=== PATIENT | female | born 1950 | race African-American/Black ===

== ENCOUNTER 2018-01-29 05:11 | Emergency (ER) | payer MEDICARE, OTHER ==
[2018-01-29 06:20] LABS: #Eosinphils 0.2 thou/uL (0.0-0.7); #Lymphocytes 2.1 thou/uL (1.20-3.40); #Monocytes 0.7 thou/uL (0.11-0.59); #Neutrophils 5.4 thou/uL (1.40-6.50); %Basophils 0.4 % (0.0-1.0); %Eosinophils 2.8 % (0.0-10.0); %Lymphocytes 24.8 % (21.0-51.0); %Monocytes 7.8 % (0.0-10.0); %Neutrophils 64.2 % (42.0-75.0); Hemoglobin 13.3 g/dL (12.0-16.0); Mean Corpuscular HGB CONC 32.8 g/dL (32.0-36.0); Mean Corpuscular Hemoglobin 29.6 pg (27.0-31.0); Mean Corpuscular Volume 90.2 fL (78.0-98.0); Mean Platelet Volume 6.8 fL (7.4-10.4); Platelet Count 178 thou/uL (130-400); RBC Distribution Width 12.8 % (11.5-14.5); Red Blood Cell (RBC) Count 4.49 mill/uL (4.20-5.40); White Blood Cell (WBC) Count 8.5 thou/uL (4.8-10.8)
[2018-01-29 06:34] LABS: ALT (SGPT) 15 U/L (8-55); AST (SGOT) 18 U/L (5-34); Albumin 3.8 g/dL (3.4-4.8); Alkaline Phosphatase 78 U/L (40-150); Anion Gap 15 mmol/L (10-20); BUN (Urea Nitrogen) 19 mg/dL (9.8-20.1); Calc. Creatinine Clearance 0 mL/min (70-130); Calcium 9.6 mg/dL (7.8-10.44); Carbon Dioxide 25 mmol/L (23-31); Chloride 109 mmol/L (98-107); Estimated GFR-MDRD Greater than 90; Globulin 3.8 g/dL (2.4-3.5); Glucose 104 mg/dL (80-115); Potassium 3.9 mmol/L (3.5-5.1); Protein, Total 7.6 g/dL (6.0-8.3); Sodium 145 mmol/L (136-145)
--- NOTE | 2018-01-29 08:33 | CT ---
FINAL REPORT INDICATION: History of fall. COMPARISON: Prior CT of the brain dated 12/09/10. FINDINGS: There is prominent encephalomalacia involving the right frontal lobe. There is severe chronic ischem ic change. There are remote lacunar infarcts involving the right caudate head as well as the right g lobus pallidus. There is some ex vacuo dilatation of the right lateral ventricle. The septum pelluc idum and third ventricle are midline. There is diffuse cerebral atrophy. There are stable changes o f a right frontal craniectomy. IMPRESSION: I agree with the preliminary report provided. No acute intracranial abnormality demonstrated. Chron ic changes as above. POS: [facility]
--- NOTE | 2018-01-29 08:41 | CT ---
PRELIMINARY REPORT/[facility]/EMERGENTY AFTER-HOURS PROCEDURE CT Cervical Spine Without Intravenous Contrast EXAM DATE/TIME: 01/29/2018 5:35 AM CLINICAL HISTORY: 67 years old, female; Injury or trauma; Fall; Initial encounter; Abrasion; Patient HX: Er 3; Fall; [facility]. Ems reports patient fell during the previous shift and it was just now r eported that patient fell. Patient sent for an eval. TECHNIQUE: Axial computed tomography images of the cervical spine without intravenous contrast. Coronal reformatted images were created and reviewed. COMPARISON: No relevant prior studies available. FINDINGS: Vertebrae: -The posterior vertebral line and the spinal laminar line are normal -no fracture Discs/Spinal canal/Neural foramina: Degenerative changes throughout the cervical spine Soft tissues: Unremarkable. Lung apices: The lung apices are normal. Vasculature: Vascular calcifications including calcifications of the carotid artery particularly on t he left bilaterally. Other findings: -The alignment is straightened. -odontoid process normal IMPRESSION: 1. No fracture. Severe diffuse degenerative disc disease. Thank you for allowing us to participate in the care of your patient. Dictated and Authenticated by: Mohan Willis MD 01/29/2018 6:25 AM Central Time ([place] & [place]) FINAL REPORT CT CERVICAL SPINE WITHOUT CONTRAST: Date: 01/29/18 INDICATION: History of fall with neck pain. COMPARISON: Prior exam dated 11/05/10. FINDINGS: No acute fracture or subluxation is evident. There is moderate to severe multilevel spondylosis of th e cervical spine, which is roughly stable to the comparison in 2010. Craniocervical junction appears within normal limits. Lung apices are clear. Prevertebral soft tissues are normal appearing. IMPRESSION: No acute fracture or subluxation. POS: [facility]
--- NOTE | 2018-01-29 09:38 | RAD ---
AP VIEW OF CHEST: Date: 01/29/18 INDICATION: 67-year-old female status post fall with chest pain. COMPARISON: Prior exam dated 12/13/10. FINDINGS: Heart size is mildly prominent. Pulmonary vasculature is within normal limits. Lungs are clear. No pl eural effusion is evident. No pneumothorax is demonstrated. No acute osseous abnormality is evident. IMPRESSION: Stable mild cardiomegaly. POS: [facility]
--- NOTE | 2018-01-29 09:50 | RAD ---
3 VIEWS RIGHT HIP: Date: 01/29/18 INDICATION: History of fall with right hip pain. FINDINGS: There is a displaced femoral neck fracture involving the right hip. The femoral head resides within t he acetabulum. The femur is foreshortened in relationship to the acetabulum approximately 7.0 cm. The re is an intramedullary yoni projecting the right femur projecting beyond the field of view. On the ve ry proximal aspect of the intramedullary yoni is an oval circumscribed radiodensity suspicious for dave ymethylmethacrylate. There is a prominent amount of retained stool within the rectum. There is diffus e osteopenia. No acute fracture is evident. IMPRESSION: 1. Prominent displaced chronic appearing right femoral neck fracture. 2. 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 3. Some healed deformity involving the right mid shaft femur. POS: [facility]
== END 2018-01-29 08:52 | disposition home or self-care (01) ==
LOC: ERS 05:11
DX: M25.551 Pain in right hip (principal); Z86.73 Personal history of transient ischemic attack (TIA), and cerebral infarction without residual deficits; K21.9 Gastro-esophageal reflux disease without esophagitis; E78.5 Hyperlipidemia, unspecified; F32.9 Major depressive disorder, single episode, unspecified; F03.90 Unspecified dementia, unspecified severity, without behavioral disturbance, psychotic disturbance, mood disturbance, and anxiety; Z79.899 Other long term (current) drug therapy; W19.XXXA Unspecified fall, initial encounter
CPT/HCPCS: 36415; 70450; 71045; 72125; 80053; 85025

== ENCOUNTER 2018-06-10 11:35 | Emergency (ER) | payer MEDICARE, MEDICAID ==
[2018-06-10] MEDS ORDERED: Bacitracin Zinc 1 Packet ONE (13:14)
== END 2018-06-10 14:18 ==
LOC: ERS 11:35
DX: S91.115A Laceration without foreign body of left lesser toe(s) without damage to nail, initial encounter (principal); Z86.73 Personal history of transient ischemic attack (TIA), and cerebral infarction without residual deficits; K21.9 Gastro-esophageal reflux disease without esophagitis; E78.5 Hyperlipidemia, unspecified; F32.9 Major depressive disorder, single episode, unspecified; F03.90 Unspecified dementia, unspecified severity, without behavioral disturbance, psychotic disturbance, mood disturbance, and anxiety; Z79.899 Other long term (current) drug therapy; W22.8XXA Striking against or struck by other objects, initial encounter
CPT/HCPCS: 12001

== ENCOUNTER 2022-09-21 07:08 | Emergency (ER) | payer MEDICARE, MEDICAID ==
[2022-09-21 08:34] LABS: #Eosinphils 0.1 thou/uL (0.0-0.7); #Lymphocytes 2.1 thou/uL (1.20-3.40); #Monocytes 0.6 thou/uL (0.11-0.59); #Neutrophils 7.1 thou/uL (1.40-6.50); %Basophils 0.1 % (0.0-1.0); %Lymphocytes 21.3 % (21.0-51.0); %Monocytes 5.8 % (0.0-10.0); %Neutrophils 71.8 % (42.0-75.0); Hemoglobin 11.5 g/dL (12.0-16.0); Mean Corpuscular HGB CONC 30.8 g/dL (32.0-36.0); Mean Corpuscular Hemoglobin 28.2 pg (27.0-31.0); Mean Corpuscular Volume 91.6 fl (78.0-98.0); Mean Platelet Volume 7.4 fL (7.4-10.4); Platelet Count 238 10x3/uL (130-400); RBC Distribution Width 14.6 % (11.5-14.5); Red Blood Cell (RBC) Count 4.08 mill/uL (4.20-5.40); White Blood Cell (WBC) Count 9.8 10x3/uL (4.8-10.8)
[2022-09-21 08:55] LABS: ALT (SGPT) 15 U/L (8-55); AST (SGOT) 26 U/L (5-34); Albumin 3.7 g/dL (3.4-4.8); Alkaline Phosphatase 104 U/L (40-110); Anion Gap 18 mmol/L (10-20); BUN (Urea Nitrogen) 16 mg/dL (9.8-20.1); Bilirubin, Total 0.3 mg/dL (0.2-1.2); CK (CPK) 472 U/L (29-168); Calc. Creatinine Clearance 0 mL/min (70-130); Calcium 9.4 mg/dL (7.8-10.44); Carbon Dioxide 21 mmol/L (23-31); Chloride 109 mmol/L (98-107); Estimated GFR 69; Globulin 4.1 g/dL (2.4-3.5); Glucose 131 mg/dL (80-115); Potassium 3.5 mmol/L (3.5-5.1); Protein, Total 7.8 g/dL (5.8-8.1); Sodium 144 mmol/L (136-145)
[2022-09-21] MEDS ORDERED: Lidocaine 1% w/Epinephrine 1:100K 20 ML VIAL ONE (09:25)
[2022-09-21] MEDS ORDERED: Bacitracin 1 PK ONE (10:06)
[2022-09-21] MEDS ORDERED: Boostrix 0.5 ML (Tdap) VIAL (>/=7 yrs of age) ONE (11:34)
== END 2022-09-21 11:46 | disposition home or self-care (01) ==
LOC: ERS 07:08
DX: S01.112A Laceration without foreign body of left eyelid and periocular area, initial encounter (principal); I48.20 Chronic atrial fibrillation, unspecified; R56.9 Unspecified convulsions; K21.9 Gastro-esophageal reflux disease without esophagitis; E78.00 Pure hypercholesterolemia, unspecified; W18.30XA Fall on same level, unspecified, initial encounter; Z23 Encounter for immunization
CPT/HCPCS: 12013; 36415; 70450; 72125; 80053; 82550; 85025; 90471; 90715; 93005

== ENCOUNTER 2023-10-07 20:03 | Inpatient (IN) | payer MEDICARE, OTHER ==
[2023-10-07] MEDS ORDERED: Dexamethasone 10 MG/ML VIAL ONE (20:50)
[2023-10-07] MEDS ORDERED: cefTRIAXone (ROCEPHIN) 2 GM VIAL ONE (20:51)
[2023-10-07] MEDS ORDERED: Azithromycin 500 MG VIAL ONE (20:51)
[2023-10-07] MEDS ORDERED: Ondansetron PF 4 MG/2 ML Vial ONE (20:51)
[2023-10-07 21:01] LABS: #Basophils 0.03 10x3/uL (0.0-0.2); %Basophils 0.3 % (0.0-1.0); %Eosinophils 10.7 % (0.0-10.0); %Lymphocytes 22.9 % (21.0-51.0); %Monocytes 6.5 % (0.0-10.0); %Neutrophils 59.4 % (42.0-75.0); Hemoglobin 12.3 g/dL (12.0-16.0); Mean Corpuscular HGB CONC 30.8 g/dL (32.0-36.0); Mean Corpuscular Hemoglobin 26.6 pg (27.0-31.0); Mean Corpuscular Volume 86.6 fL (78.0-98.0); Mean Platelet Volume 9.6 fL (7.4-10.4); Platelet Count 268 10x3/uL (130-400); RBC Distribution Width 16.5 % (11.5-14.5); Red Blood Cell (RBC) Count 4.62 mill/uL (4.20-5.40)
[2023-10-07 21:10] LABS: Globulin 4.6 g/dL (2.4-3.5)
[2023-10-07 21:12] LABS: Actual Bicarbonate (HCO3v) 28.7 mEq/L (22-28); Base Excess 1.8 mEq/L (-2.0 to +3.0); Calcium, Ionized (venous) 1.24 mmol/L (1.16-1.32); Chloride (VBG) 107 mmol/L (98-106); Hematocrit-VBG 39 % (36.0-47.0); Hemoglobin (Hb) 13.3 g/dL (11.7-16.1); Potassium (VBG) 4.02 mmol/L (3.70-5.30); Sodium 150 mmol/L (133-146); pH (venous) 7.338 (7.32-7.43)
[2023-10-07 21:14] LABS: ALT (SGPT) 29 U/L (8-55); AST (SGOT) 28 U/L (5-34); Albumin 3.3 g/dL (3.4-4.8); Alkaline Phosphatase 104 U/L (40-110); Anion Gap 17 mmol/L (10-20); BUN (Urea Nitrogen) 21 mg/dL (9.8-20.1); Bilirubin, Total 0.3 mg/dL (0.2-1.2); Calc. Creatinine Clearance 0 mL/min (70-130); Calcium 9.8 mg/dL (7.8-10.44); Carbon Dioxide 26 mmol/L (23-31); Chloride 110 mmol/L (98-107); Estimated GFR 75; Glucose 119 mg/dL (80-115); INR-International Normal Ratio 1.2; Magnesium 3.1 mg/dL (1.6-2.6); Potassium 3.8 mmol/L (3.5-5.1); Protein, Total 7.9 g/dL (5.8-8.1); Prothrombin Time 14.9 sec (12.0-14.7); Sodium 149 mmol/L (136-145)
[2023-10-07 21:20] LABS: Troponin I 0.019 ng/mL (< 0.028)
[2023-10-07] MEDS ORDERED: Sodium Chloride 0.9% 100 ML ONE (21:23)
[2023-10-07 21:42] LABS: Bilirubin Negative (Negative); Blood, Urine 1+ (Negative); CAUTI Indications for Culture Alt mental st,lethar; Clarity Clear (Clear); Glucose, Urine (Dipstick) Normal (Negative); Ketone, Urine Negative (Negative); Leukocyte 250 Leu/uL (Negative); Nitrite Negative (Negative); Protein, Urine (Dipstick) Negative (Neg-Trace); Specific Gravity, Urine 1.018 (1.002-1.036); Squamous Epithelial 0-3 HPF (0-3); Urobilinogen Normal mg/dL (Less than 2); pH, Urine 5.5 (5.0-9.0)
[2023-10-07 22:04] LABS: Bacteria/HPF Rare-Few HPF (None Seen)
[2023-10-07 22:05] LABS: Urine Culture Reflex Yes Yes
[2023-10-07 23:21] LABS: Influenza A by NAA Not Detected (NotDetected); Influenza B by NAA Not Detected (NotDetected); SARS-CoV-2 NAA Rapid Test Not Detected (NotDetected)
[2023-10-08] MEDS ORDERED: Albuterol 2.5 MG (0.5 mL) NEB ONE (00:25)
[2023-10-08] MEDS ORDERED: Ipratropium/Albuterol 3 ML NEB ONE (00:25)
[2023-10-08] MEDS ORDERED: Acetaminophen 325 MG TAB PO PRN (00:28)
[2023-10-08] MEDS ORDERED: Ondansetron PF 4 MG/2 ML Vial IVP PRN (00:28)
[2023-10-08] MEDS ORDERED: D5 1/2 NS 500 ML IV SCH (03:00)
[2023-10-08] MEDS: Dextrose 5 %-0.45 % NaCl 500 ML IV SCH (03:15)
[2023-10-08] MEDS ORDERED: Albuterol 2.5 MG (3 mL) NEB NEB PRN (03:23)
[2023-10-08] MEDS: Ipratropium/Albuterol 3 ML NEB NEB SCH (03:50)
[2023-10-08 03:53] VITALS: BMI 38.9
[2023-10-08] MEDS: Piperacillin/Tazobactam 3.375 GM in Sodium Chloride 0.9% 100 ML IVPB SCH ×2 (03:56→07:49)
[2023-10-08] MEDS: methylPREDNISolone Sod Succ/PF 125 MG/2 ML VIAL IVP SCH (03:56)
[2023-10-08 04:16] LABS: #Basophils Less than 0.03 10x3/uL (0.0-0.2); #Eosinphils Less than 0.03 10x3/uL (0.0-0.7); %Basophils 0.1 % (0.0-1.0); %Lymphocytes 3.8 % (21.0-51.0); %Monocytes 0.6 % (0.0-10.0); %Neutrophils 95.2 % (42.0-75.0); Hematocrit 37.6 % (36.0-47.0); Hemoglobin 11.4 g/dL (12.0-16.0); Mean Corpuscular HGB CONC 30.3 g/dL (32.0-36.0); Mean Corpuscular Hemoglobin 26.1 pg (27.0-31.0); Mean Corpuscular Volume 86.2 fL (78.0-98.0); Mean Platelet Volume 9.7 fL (7.4-10.4); Platelet Count 236 10x3/uL (130-400); RBC Distribution Width 16.3 % (11.5-14.5); Red Blood Cell (RBC) Count 4.36 mill/uL (4.20-5.40)
[2023-10-08 04:42] LABS: Anion Gap 17 mmol/L (10-20); BUN (Urea Nitrogen) 18 mg/dL (9.8-20.1); Calc. Creatinine Clearance 100 mL/min (70-130); Calcium 9.1 mg/dL (7.8-10.44); Carbon Dioxide 24 mmol/L (23-31); Chloride 110 mmol/L (98-107); Estimated GFR 79; Glucose 216 mg/dL (80-115); Potassium 3.8 mmol/L (3.5-5.1); Sodium 147 mmol/L (136-145)
[2023-10-08] MEDS ORDERED: methylPREDNISolone Sod Succ 40 MG VIAL IVP SCH (06:00)
[2023-10-08] MEDS ORDERED: Metoprolol Tartrate 5 MG (5 mL) VIAL IVP PRN (06:50)
[2023-10-08] MEDS: Mometasone 200 MCG/Formoterol 5 MCG 120 PUFF INHALER INH SCH (07:15)
[2023-10-08] MEDS: Enoxaparin 40 MG (0.4 mL) SYRINGE SC SCH (07:50)
[2023-10-08] MEDS: methylPREDNISolone Sod Succ 40 MG VIAL IVP SCH (09:00)
[2023-10-08] MEDS ORDERED: Lisinopril 5 MG TAB PO SCH (09:00)
[2023-10-08] MEDS ORDERED: Metoprolol Tartrate 25 MG TAB PO SCH (09:00)
[2023-10-08] MEDS: Dextrose 5 %-0.45 % NaCl 1,000 ML IV SCH (10:31)
[2023-10-08] MEDS ORDERED: Iopamidol 370 76% 100 ML VIAL ONE (11:30)
[2023-10-08] MEDS ORDERED: Azithromycin 500 MG in Sodium Chloride 0.9% 250 ML 250 ML IVPB SCH (22:00)
[2023-10-09] MEDS ORDERED: cefTRIAXone\\ROCEPHIN 1 GM in Sodium Chloride 0.9% 100 ML IVPB SCH (01:00)
[2023-10-09 07:47] LABS: #Basophils Less than 0.03 10x3/uL (0.0-0.2); #Eosinphils Less than 0.03 10x3/uL (0.0-0.7); %Basophils 0.2 % (0.0-1.0); %Lymphocytes 10.9 % (21.0-51.0); %Monocytes 3.9 % (0.0-10.0); %Neutrophils 84.6 % (42.0-75.0); Hematocrit 34.8 % (36.0-47.0); Hemoglobin 10.7 g/dL (12.0-16.0); Mean Corpuscular HGB CONC 30.7 g/dL (32.0-36.0); Mean Corpuscular Hemoglobin 25.8 pg (27.0-31.0); Mean Corpuscular Volume 84.1 fL (78.0-98.0); Mean Platelet Volume 9.8 fL (7.4-10.4); Platelet Count 239 10x3/uL (130-400); RBC Distribution Width 16.5 % (11.5-14.5); Red Blood Cell (RBC) Count 4.14 mill/uL (4.20-5.40)
[2023-10-09 08:06] LABS: Anion Gap 13 mmol/L (10-20); BUN (Urea Nitrogen) 19 mg/dL (9.8-20.1); Calc. Creatinine Clearance 102 mL/min (70-130); Calcium 8.9 mg/dL (7.8-10.44); Carbon Dioxide 24 mmol/L (23-31); Chloride 112 mmol/L (98-107); Estimated GFR 82; Glucose 151 mg/dL (80-115); Potassium 3.4 mmol/L (3.5-5.1); Sodium 146 mmol/L (136-145)
[2023-10-09 15:22] VITALS: BMI 38.9
[2023-10-09] MEDS: Latanoprost 0.005% Ophth Soln 2.5 ml Bottle EA EYE SCH (20:17)
[2023-10-09] MEDS: methylPREDNISolone Sod Succ 40 MG VIAL IVP SCH (20:21)
[2023-10-10] MEDS: Atorvastatin Calcium 20 MG TAB PO SCH (08:07)
[2023-10-10 09:05] LABS: Anion Gap 15 mmol/L (10-20); BUN (Urea Nitrogen) 21 mg/dL (9.8-20.1); Calc. Creatinine Clearance 91 mL/min (70-130); Calcium 8.3 mg/dL (7.8-10.44); Carbon Dioxide 22 mmol/L (23-31); Chloride 108 mmol/L (98-107); Estimated GFR 71; Glucose 150 mg/dL (80-115); Potassium 3.9 mmol/L (3.5-5.1); Sodium 141 mmol/L (136-145)
[2023-10-10 09:43] LABS: #Basophils Less than 0.03 10x3/uL (0.0-0.2); #Eosinphils Less than 0.03 10x3/uL (0.0-0.7); %Lymphocytes 7.8 % (21.0-51.0); %Monocytes 6.1 % (0.0-10.0); Hematocrit 33.8 % (36.0-47.0); Hemoglobin 10.2 g/dL (12.0-16.0); Mean Corpuscular HGB CONC 30.2 g/dL (32.0-36.0); Mean Corpuscular Hemoglobin 26.6 pg (27.0-31.0); Mean Platelet Volume 10.6 fL (7.4-10.4); Platelet Count 229 10x3/uL (130-400); RBC Distribution Width 16.9 % (11.5-14.5); Red Blood Cell (RBC) Count 3.84 mill/uL (4.20-5.40)
[2023-10-10 18:19] VITALS: BP 147/73; TEMP 98
== END 2023-10-10 18:46 | DRG 177 ==
LOC: ERS 20:03 → IMCU/EMU 10-08 01:01 → T4-A 10-08 17:59
PROVIDERS: ADMIT Internal Medicine; ATTEND Internal Medicine
PROC: 5A09357 Assistance with Respiratory Ventilation, Less than 24 Consecutive Hours, Continuous Positive Airway Pressure (ICD-10-PCS; principal; 2023-10-08)
DX: J69.0 Pneumonitis due to inhalation of food and vomit (principal); J96.01 Acute respiratory failure with hypoxia; J96.02 Acute respiratory failure with hypercapnia; I69.352 Hemiplegia and hemiparesis following cerebral infarction affecting left dominant side; N39.0 Urinary tract infection, site not specified; E87.0 Hyperosmolality and hypernatremia; F03.90 Unspecified dementia, unspecified severity, without behavioral disturbance, psychotic disturbance, mood disturbance, and anxiety; I10 Essential (primary) hypertension; E78.5 Hyperlipidemia, unspecified; G40.909 Epilepsy, unspecified, not intractable, without status epilepticus; D64.9 Anemia, unspecified; K21.9 Gastro-esophageal reflux disease without esophagitis; I48.91 Unspecified atrial fibrillation; F17.210 Nicotine dependence, cigarettes, uncomplicated; R13.10 Dysphagia, unspecified; Z79.899 Other long term (current) drug therapy
CPT/HCPCS: 36415; 36416; 51701; 71045; 71275; 80048; 80053; 81001; 82805; 83605; 83735; 83880; 84484; 85025; 85610; 85730; 87040; 87077; 87086; 87149; 87633; 93005; 94640; 94660; 94760; 96374; 96375; J0456; J0696; J1100; J1650; J2405; J2543; J2920; J2930; J3490; J7042; J7611; J7620; Q9967